=== PATIENT | female | born 1945 ===

== ENCOUNTER 2020-11-28 11:14 | Emergency (ER) | payer MEDICARE, BC ==
--- NOTE | 2020-11-28 11:50 | EDM.PDOC ---
ED HPI GENERAL MEDICAL PROBLEM - General Stated Complaint: Heartattck Time Seen by Provider: 11/28/20 11:50 Source of Information: Reports: Patient History Limitations: Reports: No Limitations - History of Present Illness INITIAL COMMENTS - FREE TEXT/NARRATIVE: Patient comes emergency department today from home with her family with concerns of left arm neck and shoulder pain. Since about 3:00 this morning this patient has had waxing and waning shooting pain starting at the base of the left lateral posterior neck radiating down her shoulder to her arm. Gets worse with movement of her arm. This pain is about a 7 out of a 10. She has no change in the functionality of her upper or lower extremities. She denies any recent falls or head trauma or back pain. No problems of pain or disability in her neck in the past. No paresthesias otherwise of her upper or lower extremities other than previously stated. She also relates she has some anterior left chest pain that gets worse with movement and better with not movement. And is burning and sharp in nature. Comes and goes with movement. No shortness of breath or difficulty breathing. No palpitations weakness dizziness lightheadedness. No syncope. No cough or congestion. No abdominal pain nausea or vomiting. Hematuria dysuria or urinary frequency. No change in her bowel or bladder habits. Left Arm Pain Score (Numeric/FACES): 6 Mid-Sternal Chest Pain Score (Numeric/FACES): 6 - Related Data Allergies Allergy/AdvReac Type Severity Reaction Status Date / Time No Known Allergies Allergy Verified 11/28/20 18:51 Home Meds: Home Meds Pantoprazole [ProTONIX] 40 mg PO DAILY 11/28/20 [History] ED ROS GENERAL - Review of Systems Review Of Systems: Comprehensive ROS is negative, except as noted in HPI. ED EXAM, GENERAL - Physical Exam Exam: See Below Exam Limited By: No Limitations General Appearance: Alert, WD/WN, No Apparent Distress Ears: Normal External Exam Nose: Normal Inspection, Normal Mucosa, No Blood Throat/Mouth: Normal Inspection Head: Atraumatic, Normocephalic, Other (SPurlings test negative bilaterally. ) Neck: Normal Inspection, Supple, Tender Lateral (Posterior laterally by palpation. No bruising swelling ecchymosis bony deformities or other signs of trauma.). No: Tender Midline Respiratory/Chest: No Respiratory Distress, Lungs Clear, Normal Breath Sounds, No Accessory Muscle Use, Chest Non-Tender Cardiovascular: Normal Peripheral Pulses, Regular Rate, Rhythm Peripheral Pulses: 2+: Radial (L), Radial (R), Posterior Tibial (L), Posterior Tibial (R), Dorsalis Pedis (L), Dorsalis Pedis (R) GI/Abdominal: Normal Bowel Sounds, Soft, Non-Tender (Female) Exam: Deferred Rectal (Female) Exam: Deferred Back Exam: Normal Inspection, Full Range of Motion. No: Decreased Range of M otion, Muscle Spasm, Paraspinal Tenderness, Vertebral Tenderness Extremities: Normal Inspection (Other than some tenderness from the neck down to the arm with palpation although no signs of trauma. ), Normal Range of Motion, No Pedal Edema, Normal Capillary Refill Neurological: Alert, Oriented, CN II-XII Intact, Normal Cognition, Normal Gait, No Motor/Sensory Deficits Psychiatric: Normal Affect, Normal Mood Skin Exam: Warm, Dry, Intact, Normal Color, No Rash Course - Vital Signs Last Recorded V/S: Last Vital Signs Temp 97.9 F 11/28/20 11:15 Pulse 64 11/28/20 13:00 Resp 16 11/28/20 13:00 BP 132/62 11/28/20 13:00 Pulse Ox 99 11/28/20 13:00 - Orders/Labs/Meds Orders: Active Orders 24 hr Category Date Time Status Peripheral IV Insertion Adult [OM.PC] Stat Ot 11/28/20 12:09 Ordered Labs: Laboratory Tests 11/28/20 11/28/20 Range/Units 11:50 11:50 WBC 6.6 (4.0-10.0) x10^3/uL RBC 4.71 (4.00-5.50) x10^6/uL Hgb 13.6 (12.0-16.0) g/dL Hct 42.2 (33.0-47.0) % MCV 89.6 (78.0-93.0) fL MCH 28.9 (26.0-32.0) pg MCHC 32.2 (32.0-36.0) g/dL RDW Coeff of Aimee 14.9 (10.0-15.0) % Plt Count 262 (130-400) x10^3/uL Neut % (Auto) 62.8 (50.0-80.0) % Lymph % (Auto) 20.2 L (25.0-50.0) % [place] % (Auto) 11.3 H (2.0-11.0) % Eos % (Auto) 5.2 H (0.0-4.0) % Baso % (Auto) 0.5 (0.2-1.2) % Sodium 143 (136-145) mmol/L Potassium 4.0 (3.5-5.1) mmol/L Chloride 109 H (98-107) mmol/L Carbon Dioxide 29 (21-32) mmol/L Anion Gap 9.0 (5-15) mmol/L BUN 15 (7-18) mg/dL Creatinine 0.7 (0.55-1.02) mg/dL Est Cr Clr Drug Dosing TNP Estimated GFR (MDRD) > 60 Glucose 98 (74-106) mg/dL Calcium 8.1 L (8.5-10.1) mg/dL Corrected Calcium 8.74 (8.5-10.1) mg/dL Total Bilirubin 0.2 (0.2-1.0) mg/dL AST 16 (15-37) U/L ALT 26 (14-59) U/L Alkaline Phosphatase 64 (46-116) U/L Troponin I High Sens 4 (<=51) ng/L Total Protein 6.6 (6.4-8.2) g/dL Albumin 3.2 L (3.4-5.0) g/dL Globulin 3.4 Albumin/Globulin Ratio 0.94 Meds: Medications Discontinued Medications Generic Name Dose Route Start Last Admin Trade Name Freq PRN Reason Stop Dose Admin Cyclobenzaprine HCl 1 packet 11/28/20 13:46 11/28/20 19:03 Take Home: Cyclobenzaprine 10 Mg Tab, 4 Tab Pack PO 11/28/20 13:47 Not Given ONETIME ONE Ketorolac Tromethamine 15 mg 11/28/20 12:08 11/28/20 12:17 Ketorolac 15 Mg/Ml Sdv IVPUSH 11/28/20 12:09 15 mg ONETIME ONE Administration Sodium Chloride 10 ml 11/28/20 12:09 Sodium Chloride 0.9% 10 Ml Syringe FLUSH ASDIRECTED PRN Keep Vein Open - Re-Assessments/Exams Free Text/Narrative Re-Assessment/Exam: Chest x-ray per radiology shows low lung volumes. No infiltrates. EKg no ST elevation or depression when reviewed extemporaneously by myself. IV was established labs are drawn. Ketorolac 15 mg IV push. Patient had quite a bit of improvement of her pain and really felt quite a bit better even after the small dose of Toradol. Labs with a rather unremarkable CBC. Chemistries with a chloride of 109 calcium 8.1 otherwise normal liver enzymes. Troponin 4. As of note her pain has been going on since 3-4 this morning. Patient had marked improvement of her symptomology that brought her into the emergency department. Her cardiac work-up and stroke work-up is negative. Although she really has no strokelike symptoms. Her exam is unremarkable. This is really the presentation of muscle strain and spasm as she has been doing quite a bit of heavy lifting over the past couple of days as she is trying to get ready for pump Sunday. She has marked improvement with some ketorolac. She refuses a sling for her arm. We will discharge her home with Flexeril. She also has a follow-up with her primary tomorrow and they can visit with them about physical therapy referral. Discharge directions as below are explained to the patient she was comfortable with this plan and her questions are answered. Departure - Departure Time of Disposition: 13:42 Disposition: Home, Self-Care 01 Clinical Impression: Muscle strain Instructions: Muscle Strain, [id number], Cervical Radiculopathy, [id number] Referrals: PCP,Not In Area [Primary Care Provider] - Forms: ED Department Discharge Additional Instructions: Tylenol and or Ibuprofen as needed for pain. Heat or ice to the affected neck shoulder region. Decrease activity of the arm shoulder and neck. If pain not controlled with above. Flexeril 1 tablet three times a day as needed for pain spams. Starter pack from the ED and RX given to the patient. Return to the ED if new or worsening symptoms. Follow up with PCP tomorrow as planned and we will supply you with your labs and EKG from today. See Physical therapy when you get home for treatment of the symptoms today. Sepsis Event Note (ED) - Focused Exam Vital Signs: Vital Signs Temp Pulse Resp BP Pulse Ox 11/28/20 13:00 64 16 132/62 99 11/28/20 11:15 97.9 F 69 16 150/67 H 96 - My Orders Last 24 Hours: My Active Orders 11/28/20 12:09 Peripheral IV Insertion Adult [OM.PC] Stat - Assessment/Plan Last 24 Hours: My Active Orders 11/28/20 12:09 Peripheral IV Insertion Adult [OM.PC] Stat
[2020-11-28] MEDS ORDERED: Ketorolac 15 MG/ML SDV IVPUSH ONE (12:08)
[2020-11-28] MEDS ORDERED: Sodium Chloride 0.9% 10 ML Syringe FLUSH PRN (12:09)
[2020-11-28 12:27] LABS: CHLORIDE,CL 109 mmol/L (98-107); SODIUM,NA 143 mmol/L (136-145)
--- NOTE | 2020-11-28 12:59 | CR ---
[id number] RAD/RAD Chest PA or AP 1V EXAM: FRONTAL CHEST INDICATION: CHEST PAIN. COMPARISON: None. DISCUSSION: Portable technique and body habitus mildly limit this assessment. There is hypoinflation with mild central vascular congestion and early basilar atelectasis with no definite infiltrates. The heart is at upper limits of normal for size without evidence of edema. IMPRESSION: 1. Low lung volumes. Marco Richards MD 11/28/20 [id number] Thank you for allowing us to participate in the care of your patient.
[2020-11-28] MEDS ORDERED: Take Home: Cyclobenzaprine 10 MG Tab, 4 Tab Pack PO ONE (13:46)
--- NOTE | 2020-11-28 20:25 | PCM.EKG ---
#1 Interpretation EKG Date: 11/28/20 Time: 11:16 Rhythm: NSR Rate (Beats/Min): 67 [place]: Normal P-Wave: Present QRS: Normal ST-T: Normal QT: Normal Comparison: NA - No Prior EKG
== END 2020-11-28 14:00 | disposition home or self-care (01) ==
LOC: VM.ED 11:14
DX: S16.1XXA Strain of muscle, fascia and tendon at neck level, initial encounter (principal); S46.912A Strain of unspecified muscle, fascia and tendon at shoulder and upper arm level, left arm, initial encounter; X58.XXXA Exposure to other specified factors, initial encounter
CPT/HCPCS: 71045; 80053; 84484; 85025; 93005; 93010; 96374; 99284; 99284-25; J1885